=== PATIENT | female | born 1970 | race Caucasian/White ===

== ENCOUNTER 2021-04-15 12:08 | Emergency (ER) | payer BC, SELFPAY ==
[2021-04-15 12:10] VITALS: BP 146/90; PULSE 100; RESP 16; TEMP 36.4; O2SAT 100
--- NOTE | 2021-04-15 12:39 | PC.NURSE ---
spoke to pt about evaluation process, pt not wanting to participate at this time. asking to wait on her 's arrival. pt not wanting to stay in triage, asking to sit in lobby. pt completely denied thought of harm to self or others.
--- NOTE | 2021-04-15 14:54 | ECG_ITS ---
Measurements Intervals [place] Rate: 86 P: 66 ME: 161 QRS: 91 QRSD: 101 T: 59 QT: 400 QTc: 480 Interpretive Statements SINUS RHYTHM RIGHT AXIS DEVIATION LOW QRS VOLTAGE IN LIMB LEADS CANNOT RULE OUT SEPTAL INFARCT, AGE INDETERMINATE BORDERLINE ST ABNORMALITY- INFERIOR LEADS BASELINE ARTIFACT- I, II, III, AVR, AVL, AVF, V6 ABNORMAL ECG Electronically Signed On 04-15-2021 19:59:28 [employer] [place] by Reid Severino D.O.
--- NOTE | 2021-04-15 15:09 | PC.NURSE ---
pt's came home today finding pt on the floor in position with both hands covering her ears. pt was not responding to and would not release her ears.pt states she was in deep prayer when came home. Pt was very worried that i was reading information about her in the computer and demanded what was being said about her. when asked if pt is seeing or hearing things, pt denies, then states her just cant hear them. states her cell phone is talking with her television and are trying to control her. Pt/ deny any hx of psychiatric issues in the past other than this paranoia that has been going on for about a year off and on. states it has never been this bad. reports pt having covid a year and a half ago and slurred speech that followed for 6 months. pt has not been seen by medical for it. After asking patient if anyone was out to get her, pt states apparently my is. but he is a nice drea Pt states she has been scared of anything that will plug in because they are talking to each other to try taking her over
--- NOTE | 2021-04-15 15:46 | PC.NURSE ---
when provider in room with pt, pt became very agitated and began screaming and holding her ears. walked out of room and stepped outside. this rn was bringing medication to calm pt down, pt ran out of room stating we can not give her any shots. pt is now pacing in waiting room and will not return to room. called to update and ask to help pt come back into room. Charge nurse and provider aware of situation.
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
--- NOTE | 2021-04-15 17:00 | PC.NURSE ---
RN attempted to get pt. vitals. pt. refusing RN to get pt. VS. PT. chest rise and fall steady, skin pink warm and dry. pt. not in any distress.
--- NOTE | 2021-04-15 17:04 | PC.NURSE ---
pt's behavior escalating, in room, crying, screaming, paranoid. pt unable to follow simple directions. pt refusing lab work, stating that he can not take the pt home, has concerns about pt wellbeing and safety
[2021-04-15] MEDS: HALOPERIDOL LACTATE 5 MG/ML VIAL IM (17:24)
[2021-04-15] MEDS: LORazepam INJ (*CRX) 2 MG/ML VIAL IM (17:25)
--- NOTE | 2021-04-15 17:27 | PC.NURSE ---
pt moved from room 16 to room 15. aware. pt will not acknowledge staff. has fingers in ears. staff moved pt over into bed. Meds given without objection.
[2021-04-15 18:00] VITALS: BP 130/78; PULSE 87; RESP 14; O2SAT 97
[2021-04-15 18:22] LABS: Basophils Percent Auto 0.3 % (0.2-1.2); Eosinophils Percent Auto 0.5 % (0-4.4); Hematocrit 36.8 % (37.0-47.0); Hemoglobin 12.2 g/dL (12.0-15.0); Immature Granulocyte Absolute 0.02 K/mm3 (0.00-0.031); Immature Granulocyte Percent A 0.3 % (0-0.5); Lymphocytes Absolute Auto 1.88 K/mm3 (0.9-3.2); Lymphocytes Percent Auto 25.8 % (18.3-44.2); Mean Corpuscular HGB Conc 33.2 g/dl (32-36); Mean Corpuscular Hemoglobin 31.4 pg (26-34); Mean Corpuscular Volume 94.6 fl (80-100); Mean Platelet Volume 10.2 fl (7.4-10.4); Monocytes Absolute Auto 0.5 K/mm3 (0.1-0.6); Monocytes Percent Auto 6.3 % (2.6-8.5); Neutrophils Absolute Auto 4.9 K/mm3 (1.3-6.7); Neutrophils Percent Auto 66.8 % (45.5-73.1); Platelet Count Result 280 k/mm3 (150-375); Red Blood Count 3.89 M/mm3 (4.2-5.4); Red Cell Distribution Width 14.1 % (11.5-14.5); White Blood Count 7.3 K/mm3 (4.5-10.0)
[2021-04-15 18:32] LABS: Acetaminophen < 10 ug/mL (10-30); Alanine Aminotransferase 53 U/L (4-35); Alkaline Phosphatase 65 U/L (38-126); Anion Gap 9 mmol/L (8-16); Aspartate Amino Transferase 98 U/L (14-36); Bilirubin,Total 0.7 mg/dL (0.2-1.3); Blood Urea Nitrogen 10 mg/dL (7-17); Calcium 10.4 mg/dL (8.4-10.2); Carbon Dioxide 25 mmol/L (22-30); Chloride 104 mmol/L (98-107); Estimated CRCL calculation 48 ml/min; Estimated Glomerular Filt Rate 47; Ethanol < 10 mg/dL (<10); Glucose 100 mg/dL (65-110); Potassium 3.6 mmol/L (3.4-5.0); Sodium 138 mmol/L (137-145)
--- NOTE | 2021-04-15 18:33 | PC.NURSE ---
pt. belongings locked in cabinet between RM 3-4
[2021-04-15 18:45] LABS: Add Urine Microscopic? YES; Appearance Urine Clear (Clear); Bacteria Urine Trace /hpf; Bilirubin Urine Negative (Negative); Blood Urine Negative (Negative); Color Urine Straw (Yellow); Glucose Urine UA Negative (Negative); Ketones Urine Trace mg/dL (Negative); Leukocyte Esterase Ur Negative LEU/UL (Negative); Nitrate Urine Negative (Negative); Protein Urine Negative (Negative); RBC Urine 0-2 /hpf (0-2); Squamous Epithelial Cell Urine Occasional /hpf (Few); Urobilinogen Urine Negative mg/dL (<2.0); WBC Urine 0-3 /hpf
[2021-04-15 18:47] LABS: Specific Grav Ur 1.004 (1.001-1.035)
[2021-04-15 18:53] LABS: Pregnancy On Board Control Positive; Urine Pregnancy Test Negative
[2021-04-15 18:57] LABS: Amphetamine Screen Urine Negative (Negative); Barbiturate Screen Urine Negative (Negative); Benzodiazepines Screen Urine Negative (Negative); Cannabinoid Screen Urine Negative (Negative); Cocaine Screen Urine Negative (Negative); Methadone Screen Urine Negative (Negative); Opiate Screen Urine Negative (Negative); Phencyclidine Screen Urine Negative (Negative)
[2021-04-15 19:37] LABS: Thyroid Stimulating Hormone > 100.000 uIU/mL (0.465-4.680)
[2021-04-15 20:16] LABS: Free T4 Free Thyroxine 0.12 ng/mL (0.78-2.19)
--- NOTE | 2021-04-15 20:56 | PC.NURSE ---
PT MEDICALLY CLEAR PER DANIELE MCKEON. MAY CALL CRISIS NOW FOR EVALUATION.
--- NOTE | 2021-04-15 21:06 | PC.NURSE ---
[facility] NOTIFIED AND WILL BE IN [place]. RN AT BEDSIDE TO COVID [facility] FOR PLACEMENT PURPOSES.
[2021-04-15 21:31] LABS: EDCOVIDSCREEN Negative (Negative)
--- NOTE | 2021-04-16 | PC.NURSE ---
EDP clarified that patient was ok to be discharged from the facility, had resources and safety plan in place, family member present to take patient home.
== END 2021-04-16 00:24 | disposition home or self-care (01) ==
PROVIDERS: Physician Assistant; Emergency Provider Family Medicine; PCP Pediatrics
DX: F29 Unspecified psychosis not due to a substance or known physiological condition (principal); Z20.822 Contact with and (suspected) exposure to COVID-19; E03.9 Hypothyroidism, unspecified; R94.31 Abnormal electrocardiogram [ECG] [EKG]
CPT/HCPCS: 36415; 80053; 80307; 81001; 81025; 84439; 84443; 85025; 87426; 93005; 96372; 99284; C9803; J1630; J2060

== ENCOUNTER 2021-06-30 08:55 | Outpatient (CLI) | payer BC, SELFPAY ==
[2021-06-30 10:11] LABS: Free T4 Free Thyroxine 0.09 ng/mL (0.78-2.19); Vitamin D 25 Hydroxy 32.7 ng/mL
[2021-06-30 10:29] LABS: Thyroid Stimulating Hormone Reflex > 100.000 uIU/mL (0.465-4.68)
[2021-06-30 11:18] LABS: Total Triiodothyronine (T3) 0.45 NG/ML (0.97-1.69)
[2021-07-02 15:00] LABS: Selenium 164 mcg/L (63-160)
[2021-07-03 02:02] LABS: Zinc 77 mcg/dL (60-130)
[2021-07-03 03:46] LABS: Thyroglobulin 3.7 ng/mL (2.8-40.9); Thyroglobulin Antibodies 3 IU/mL (<=1); Thyroid Peroxidase Antibodies 725 IU/mL (<9)
[2021-07-03 07:39] LABS: Triiodothyronine T3 Free 1.4 pg/mL (2.3-4.2)
[2021-07-03 14:09] LABS: Red Blood Cell Folate 617 ng/mL RBC (>280)
[2021-07-05 13:39] LABS: T3 Reverse <5 ng/dL (8-25)
== END 2021-06-30 08:56 | disposition home or self-care (01) ==
LOC: ANHLAB 09:05
PROVIDERS: PCP Family Medicine
DX: E03.8 Other specified hypothyroidism (principal); E55.9 Vitamin D deficiency, unspecified; E56.8 Deficiency of other vitamins
CPT/HCPCS: 36415; 82306; 82542; 82607; 82728; 82747; 84255; 84432; 84439; 84443; 84480; 84481; 84482; 84630; 86376; 86800